=== PATIENT | female | born 1990 | race Caucasian/White ===

== ENCOUNTER 2017-04-13 19:25 | Emergency (ER) | payer SELFPAY ==
[2017-04-13 20:13] LABS: #Lymphocytes 2.6 thou/uL (1.20-3.40); #Monocytes 1.2 thou/uL (0.11-0.59); #Neutrophils 11.4 thou/uL (1.40-6.50); %Basophils 0.3 % (0.0-1.0); %Eosinophils 0.2 % (0.0-10.0); Hematocrit 37.1 % (36.0-47.0); Mean Platelet Volume 6.8 fL (7.4-10.4); Red Blood Cell (RBC) Count 3.95 mill/uL (4.20-5.40); White Blood Cell (WBC) Count 15.4 thou/uL (4.8-10.8)
[2017-04-13 20:23] LABS: Prothrombin Time 15.2 SEC (12.0-14.7)
[2017-04-13 20:32] LABS: Anion Gap 13 mmol/L (10-20); BUN (Urea Nitrogen) 9 mg/dL (7.0-18.7); Calc. Creatinine Clearance 0 mL/min (70-130); Calcium 9.6 mg/dL (7.8-10.44); Carbon Dioxide 26 mmol/L (22-29); Chloride 100 mmol/L (98-107); Estimated GFR-MDRD 87
[2017-04-13 20:38] LABS: Troponin I Less than 0.010 ng/mL (< 0.028)
--- NOTE | 2017-04-13 20:58 | RAD ---
TWO VIEW CHEST: Indication: Cough. Comparison: None. FINDINGS: There is no consolidation or effusion. No pneumothorax. Cardiac silhouette is normal in size. Osseous structures are intact. IMPRESSION: No focal consolidation. POS: [facility]
[2017-04-13] MEDS ORDERED: Acetaminophen 500 MG TAB ONE (21:17)
--- NOTE | 2017-04-13 21:17 | CT ---
CT HEAD NONCONTRAST: Indication: Cough, shortness of breath with congestion and migraine headache. FINDINGS: There is motion artifact which does limit assessment. However, there is no evidence for acute intracr anial hemorrhage or mass effect or ventriculomegaly. No midline shift. Extensive paranasal sinus opac ification is present. IMPRESSION: 1. Limited exam without acute intracranial abnormality identified. 2. Extensive opacification of the paranasal sinuses which may correlate to component of patient's hea dache. Recommend clinical correlation in this regard. POS: [facility]
[2017-04-13 22:05] LABS: Bilirubin Negative (Negative); Blood, Urine Negative (Negative); Glucose, Urine (Dipstick) Negative (Negative); Ketone, Urine Negative (Negative); Nitrite Negative (Negative); Protein, Urine (Dipstick) Negative (Neg-Trace)
[2017-04-13 22:07] LABS: Bacteria/HPF 1+ HPF (None Seen); Hyaline Casts/LPF 0-3 HYALINE CAST LPF (0-3 Hyaline)
[2017-04-13 22:21] LABS: RBC/HPF 0-3 HPF (0-3)
== END 2017-04-13 22:01 | disposition home or self-care (01) ==
LOC: ERS 19:25
DX: J01.90 Acute sinusitis, unspecified (principal); F17.210 Nicotine dependence, cigarettes, uncomplicated
CPT/HCPCS: 36415; 70450; 71020; 80048; 81003; 81015; 82553; 84484; 85025; 85379; 85610; 96360

== ENCOUNTER 2018-06-23 12:24 | Emergency (ER) | payer SELFPAY ==
[2018-06-23] MEDS ORDERED: Dexamethasone 10 MG/ML VIAL ONE (13:51)
== END 2018-06-23 14:00 | disposition home or self-care (01) ==
LOC: ERS 12:24
DX: J02.9 Acute pharyngitis, unspecified (principal); F17.210 Nicotine dependence, cigarettes, uncomplicated
CPT/HCPCS: 87081; 87430; 99283; J1100

== ENCOUNTER 2018-11-01 18:11 | Emergency (ER) | payer SELFPAY ==
--- NOTE | 2018-11-01 18:45 | RAD ---
PA AND LATERAL CHEST: 11/01/18 HISTORY: Productive cough. COMPARISON: 04/13/17 study. Heart size and mediastinum are within normal limits. The lungs are clear of infiltrates. No signific ant bony findings. IMPRESSION: No active intrathoracic disease. POS: [facility]
== END 2018-11-01 19:23 | disposition home or self-care (01) ==
LOC: ERS 18:11
DX: J20.9 Acute bronchitis, unspecified (principal); F17.210 Nicotine dependence, cigarettes, uncomplicated
CPT/HCPCS: 71046

== ENCOUNTER 2019-04-08 17:57 | Emergency (ER) | payer SELFPAY ==
[2019-04-08] MEDS ORDERED: Ibuprofen 200 MG TAB ONE (19:14)
== END 2019-04-08 19:35 | disposition home or self-care (01) ==
LOC: ERS 17:57
DX: J10.1 Influenza due to other identified influenza virus with other respiratory manifestations (principal); F17.210 Nicotine dependence, cigarettes, uncomplicated
CPT/HCPCS: 87804; 99283

== ENCOUNTER 2019-04-12 15:03 | Emergency (ER) | payer SELFPAY | END 2019-04-12 17:00 | disposition home or self-care (01) | LOC: ERS 15:03 | DX: J11.1 Influenza due to unidentified influenza virus with other respiratory manifestations (principal); F17.210 Nicotine dependence, cigarettes, uncomplicated | CPT/HCPCS: 87804; 99283 ==

== ENCOUNTER 2019-11-10 21:22 | Emergency (ER) | payer SELFPAY ==
[2019-11-10] MEDS ORDERED: Morphine 2 MG/ML SYRINGE ONE (22:26)
[2019-11-10] MEDS ORDERED: Bupivacaine 0.5% 10 ML VIAL ONE (22:36)
== END 2019-11-10 23:26 | disposition home or self-care (01) ==
LOC: ERS 21:22
DX: K03.81 Cracked tooth (principal); K02.9 Dental caries, unspecified; F17.210 Nicotine dependence, cigarettes, uncomplicated
CPT/HCPCS: 64400; 96372; J2270; J3490

== ENCOUNTER 2020-04-25 19:51 | Emergency (ER) | payer SELFPAY ==
[~2020-04-25 19:51] MED LIST: Iopamidol-370 76% 500 ML 1 ML ONE
[2020-04-25] MEDS ORDERED: Morphine 4 MG/ML VIAL ONE (20:16)
[2020-04-25] MEDS ORDERED: Ondansetron PF 4 MG/2 ML Vial ONE (20:17)
--- NOTE | 2020-04-25 20:35 | RAD ---
Chest one view HISTORY: Chest injury. COMPARISON: 04/16/2019. FINDINGS: Cardiac silhouette and pulmonary vasculature are unremarkable. Mediastinum is midline. Lungs remain hyperinflated. Lingular infiltrate has resolved. No lobar consolidation or evidence of pneumothorax. IMPRESSION : No abnormalities are demonstrated.
[2020-04-25 20:36] LABS: #Basophils 0.1 thou/uL (0.0-0.2); #Eosinphils 0.2 thou/uL (0.0-0.7); #Lymphocytes 3.1 thou/uL (1.20-3.40); #Monocytes 0.9 thou/uL (0.11-0.59); %Basophils 0.9 % (0.0-1.0); %Eosinophils 1.8 % (0.0-10.0); %Lymphocytes 25.3 % (21.0-51.0); %Monocytes 7.5 % (0.0-10.0); %Neutrophils 64.6 % (42.0-75.0); Hemoglobin 14.2 g/dL (12.0-16.0); Mean Corpuscular HGB CONC 35.3 g/dL (32.0-36.0); Mean Corpuscular Hemoglobin 33.1 pg (27.0-31.0); Mean Corpuscular Volume 93.8 fL (78.0-98.0); Mean Platelet Volume 7.6 fL (7.4-10.4); Platelet Count 253 thou/uL (130-400); White Blood Cell (WBC) Count 12.4 thou/uL (4.8-10.8)
[2020-04-25 20:52] LABS: ALT (SGPT) 16 U/L (8-55); AST (SGOT) 21 U/L (5-34); Albumin 4.2 g/dL (3.5-5.0); Alkaline Phosphatase 61 U/L (40-110); Anion Gap 12 mmol/L (10-20); BUN (Urea Nitrogen) 16 mg/dL (7.0-18.7); Bilirubin, Total 0.4 mg/dL (0.2-1.2); Calc. Creatinine Clearance 0 mL/min (70-130); Calcium 8.7 mg/dL (7.8-10.44); Carbon Dioxide 25 mmol/L (22-29); Chloride 104 mmol/L (98-107); Glucose 85 mg/dL (70-105); Lipase 17 U/L (8-78); Potassium 4.1 mmol/L (3.5-5.1); Protein, Total 7.2 g/dL (6.0-8.3); Sodium 137 mmol/L (136-145)
[2020-04-25 20:59] LABS: BHCG - Serum Negative (NEGATIVE); Pregs Control Background? CLEAR/WHITE (CLR/WHITE); Pregs Control Bar Appear? YES (CONTROL BAR)
--- NOTE | 2020-04-25 21:38 | CT ---
CT chest with IV contrast CT abdomen and pelvis with IV contrast CT thoracic spine noncontrast CT lumbar spine noncontrast HISTORY: Chest injury. Abdomen injury. Back injury. FINDINGS: Lungs are well-inflated. No mediastinal hematoma. Small amount of residual thymus. The liver, spleen, kidneys, adrenal glands, and pancreas have a normal CT appearance. No enlarged lym ph nodes or free fluid. Urinary bladder is unremarkable. Collapsed enhancing follicle of the right ovary. No evidence of bowel obstruction or inflammation. Vertebral body heights and alignment of the thoracolumbar spine are maintained. No rib fracture is ev ident. IMPRESSION : No abnormalities are demonstrated.
[2020-04-25 22:25] LABS: Bacteria/HPF None Seen HPF (None Seen); Bilirubin Negative (Negative); Blood, Urine Negative (Negative); Clarity Turbid (Clear); Glucose, Urine (Dipstick) Normal (Negative); Ketone, Urine Negative (Negative); Leukocyte 75 Leu/uL (Negative); Nitrite Negative (Negative); Protein, Urine (Dipstick) Negative (Neg-Trace); RBC/HPF 0-3 HPF (0-3); Specific Gravity, Urine 1.048 (1.002-1.036); Squamous Epithelial 21-50 HPF (0-3); Urobilinogen Normal mg/dL (Less than 2); WBC/HPF 0-3 HPF (0-3)
== END 2020-04-25 22:01 | disposition home or self-care (01) ==
LOC: ERS 19:51
DX: S29.9XXA Unspecified injury of thorax, initial encounter (principal); S39.91XA Unspecified injury of abdomen, initial encounter; I95.9 Hypotension, unspecified; R10.813 Right lower quadrant abdominal tenderness; M54.9 Dorsalgia, unspecified; R42 Dizziness and giddiness; F17.210 Nicotine dependence, cigarettes, uncomplicated; W21.02XA Struck by soccer ball, initial encounter; Y93.66 Activity, soccer
CPT/HCPCS: 71045; 71260; 74177; 80053; 81003; 81015; 83690; 84484; 84703; 85025; 93005; 96374; 96375; J2270; J2405; Q9967

== ENCOUNTER 2023-01-07 19:47 | Emergency (ER) | payer OTHER, SELFPAY ==
[~2023-01-07 19:47] MED LIST changes: -Iopamidol-370 76% 500 ML 1 ML ONE; +Iopamidol-370 76% 500 ML MDV (1 ML CHARGE) ONE
[2023-01-07 20:41] LABS: #Eosinphils 0.2 thou/uL (0.0-0.7); #Neutrophils 5.4 thou/uL (1.40-6.50); %Basophils 0.3 % (0.0-1.0); %Eosinophils 1.9 % (0.0-10.0); %Lymphocytes 35.3 % (21.0-51.0); %Neutrophils 52.3 % (42.0-75.0); Hematocrit 39.1 % (36.0-47.0); Hemoglobin 14.1 g/dL (12.0-16.0); Mean Corpuscular HGB CONC 36.1 g/dL (32.0-36.0); Mean Corpuscular Hemoglobin 32.8 pg (27.0-31.0); Mean Corpuscular Volume 90.9 fl (78.0-98.0); Mean Platelet Volume 9.8 fL (7.4-10.4); Platelet Count 278 10x3/uL (130-400); RBC Distribution Width 11.9 % (11.5-14.5); White Blood Cell (WBC) Count 10.4 10x3/uL (4.8-10.8)
[2023-01-07 20:52] LABS: BHCG - Serum Negative (NEGATIVE); Pregs Control Background? CLEAR/WHITE (CLR/WHITE); Pregs Control Bar Appear? YES (CONTROL BAR)
[2023-01-07] MEDS ORDERED: Morphine 4 MG/ML VIAL ONE (20:54)
[2023-01-07] MEDS ORDERED: Boostrix 0.5 ML (Tdap) VIAL (>/=7 yrs of age) ONE (20:54)
[2023-01-07 21:07] LABS: ALT (SGPT) 14 U/L (8-55); AST (SGOT) 20 U/L (5-34); Albumin 4.7 g/dL (3.5-5.0); Alkaline Phosphatase 58 U/L (40-110); Anion Gap 12 mmol/L (10-20); BUN (Urea Nitrogen) 9 mg/dL (7.0-18.7); Bilirubin, Total 0.6 mg/dL (0.2-1.2); Calc. Creatinine Clearance 0 mL/min (70-130); Calcium 10.3 mg/dL (7.8-10.44); Carbon Dioxide 24 mmol/L (22-29); Chloride 105 mmol/L (98-107); Estimated GFR 80; Globulin 3.2 g/dL (2.4-3.5); Glucose 92 mg/dL (70-105); Potassium 3.4 mmol/L (3.5-5.1); Protein, Total 7.9 g/dL (6.0-8.3); Sodium 138 mmol/L (136-145)
== END 2023-01-07 22:59 | disposition home or self-care (01) ==
LOC: ERS 19:47
DX: M54.9 Dorsalgia, unspecified (principal); M54.2 Cervicalgia; M25.561 Pain in right knee; F17.210 Nicotine dependence, cigarettes, uncomplicated; Y04.8XXA Assault by other bodily force, initial encounter
CPT/HCPCS: 70450; 70498; 71045; 80053; 84703; 85025; 90471; 90715; 96374; J2270; Q9967

== ENCOUNTER 2023-01-23 10:09 | Emergency (ER) | payer OTHER ==
[2023-01-23] MEDS ORDERED: Ketorolac Tromethamine 30 MG/ML VIAL ONE (10:46)
[2023-01-23] MEDS ORDERED: Lidocaine 4% Patch TD SCH (11:00)
[2023-01-23] MEDS ORDERED: Transdermal Patch Removal TOP SCH (23:00)
== END 2023-01-23 12:12 | disposition home or self-care (01) ==
LOC: ERS 10:09
DX: S16.1XXA Strain of muscle, fascia and tendon at neck level, initial encounter (principal); M25.561 Pain in right knee; M54.6 Pain in thoracic spine; F17.210 Nicotine dependence, cigarettes, uncomplicated; Y08.89XA Assault by other specified means, initial encounter; Z79.899 Other long term (current) drug therapy
CPT/HCPCS: 96372; J1885

== ENCOUNTER 2023-05-05 13:19 | Emergency (ER) | payer OTHER | END 2023-05-05 14:49 | disposition home or self-care (01) | LOC: ERS 13:19 | DX: R50.9 Fever, unspecified (principal); R51.9 Headache, unspecified; F17.210 Nicotine dependence, cigarettes, uncomplicated; Z20.828 Contact with and (suspected) exposure to other viral communicable diseases | CPT/HCPCS: 99283 ==

== ENCOUNTER 2024-05-03 01:59 | Emergency (ER) | payer OTHER ==
[2024-05-03 02:26] LABS: #Basophils 0.05 10x3/uL (0.0-0.2); %Basophils 0.6 % (0.0-1.0); %Eosinophils 1.7 % (0.0-10.0); %Lymphocytes 8.6 % (21.0-51.0); %Monocytes 7.4 % (0.0-10.0); %Neutrophils 81.4 % (42.0-75.0); Hematocrit 39.4 % (36.0-47.0); Hemoglobin 14.3 g/dL (12.0-16.0); Mean Corpuscular HGB CONC 36.3 g/dL (32.0-36.0); Mean Corpuscular Hemoglobin 33.6 pg (27.0-31.0); Mean Corpuscular Volume 92.5 fL (78.0-98.0); Mean Platelet Volume 9.5 fL (7.4-10.4); Platelet Count 228 10x3/uL (130-400); RBC Distribution Width 11.9 % (11.5-14.5); Red Blood Cell (RBC) Count 4.26 mill/uL (4.20-5.40)
[2024-05-03 02:38] LABS: BHCG - Serum Negative (NEGATIVE)
[2024-05-03 02:39] LABS: ALT (SGPT) 15 U/L (8-55); AST (SGOT) 17 U/L (5-34); Alkaline Phosphatase 60 U/L (40-110); Anion Gap 16 mmol/L (10-20); Bilirubin, Total 0.2 mg/dL (0.2-1.2); Calc. Creatinine Clearance 0 mL/min (70-130); Calcium 8.8 mg/dL (7.8-10.44); Carbon Dioxide 17 mmol/L (22-29); Chloride 109 mmol/L (98-107); Estimated GFR 101; Glucose 91 mg/dL (70-105); Potassium 3.7 mmol/L (3.5-5.1); Pregs Control Background? CLEAR/WHITE (CLR/WHITE); Pregs Control Bar Appear? YES (CONTROL BAR); Sodium 138 mmol/L (136-145)
[2024-05-03] MEDS ORDERED: Ketorolac Tromethamine 30 MG (1 mL) VIAL ONE (02:39)
[2024-05-03 02:45] LABS: Troponin I Less than 0.010 ng/mL (< 0.028)
[2024-05-03] MEDS ORDERED: Droperidol 5 MG/2 ML VIAL ONE (03:01)
[2024-05-03 03:06] LABS: BUN (Urea Nitrogen) 8 mg/dL (7.0-18.7)
== END 2024-05-03 04:25 | disposition home or self-care (01) ==
LOC: ERS 01:59
DX: J11.1 Influenza due to unidentified influenza virus with other respiratory manifestations (principal); F17.210 Nicotine dependence, cigarettes, uncomplicated
CPT/HCPCS: 71045; 80053; 83605; 84484; 84703; 85025; 87428; 93005; 96374; 96375; J1790; J1885

== ENCOUNTER 2024-05-19 14:50 | Emergency (ER) | payer OTHER ==
[2024-05-19 15:13] LABS: #Basophils 0.04 10x3/uL (0.0-0.2); %Basophils 0.2 % (0.0-1.0); %Eosinophils 0.3 % (0.0-10.0); %Lymphocytes 12.5 % (21.0-51.0); %Monocytes 5.3 % (0.0-10.0); %Neutrophils 81.3 % (42.0-75.0); Hematocrit 41.9 % (36.0-47.0); Hemoglobin 14.5 g/dL (12.0-16.0); Mean Corpuscular HGB CONC 34.6 g/dL (32.0-36.0); Mean Corpuscular Hemoglobin 32.6 pg (27.0-31.0); Mean Corpuscular Volume 94.2 fL (78.0-98.0); Mean Platelet Volume 9.3 fL (7.4-10.4); Platelet Count 305 10x3/uL (130-400); RBC Distribution Width 12.1 % (11.5-14.5); Red Blood Cell (RBC) Count 4.45 mill/uL (4.20-5.40)
[2024-05-19 15:27] LABS: Prothrombin Time 13.2 sec (12.0-14.7)
[2024-05-19 15:28] LABS: PTT 32.7 sec (22.9-36.1)
[2024-05-19 15:29] LABS: ALT (SGPT) 14 U/L (8-55); AST (SGOT) 15 U/L (5-34); Albumin 3.9 g/dL (3.5-5.0); Alkaline Phosphatase 74 U/L (40-110); Anion Gap 11 mmol/L (10-20); BUN (Urea Nitrogen) 6 mg/dL (7.0-18.7); Bilirubin, Total 0.5 mg/dL (0.2-1.2); Calc. Creatinine Clearance 0 mL/min (70-130); Calcium 9.4 mg/dL (7.8-10.44); Carbon Dioxide 25 mmol/L (22-29); Chloride 102 mmol/L (98-107); Estimated GFR 101; Globulin 4.3 g/dL (2.4-3.5); Glucose 143 mg/dL (70-105); Potassium 3.5 mmol/L (3.5-5.1); Protein, Total 8.2 g/dL (6.0-8.3); Sodium 134 mmol/L (136-145)
[2024-05-19 15:32] LABS: Troponin I Less than 0.010 ng/mL (< 0.028)
[2024-05-19] MEDS ORDERED: Morphine 4 MG/ML VIAL ONE (15:47)
[2024-05-19] MEDS ORDERED: Albuterol 2.5 MG (3 mL) NEB ONE (15:48)
[2024-05-19] MEDS ORDERED: Ketorolac Tromethamine 30 MG (1 mL) VIAL ONE (15:48)
[2024-05-19] MEDS ORDERED: Ipratropium/Albuterol 3 ML NEB ONE (15:48)
[2024-05-19] MEDS ORDERED: Azithromycin 500 MG VIAL ONE (15:48)
[2024-05-19] MEDS ORDERED: Dexamethasone 10 MG/ML VIAL ONE (15:48)
== END 2024-05-19 18:25 | disposition home or self-care (01) ==
LOC: ERS 14:50
DX: J18.9 Pneumonia, unspecified organism (principal); F17.210 Nicotine dependence, cigarettes, uncomplicated
CPT/HCPCS: 71045; 80053; 83605; 84484; 85025; 85610; 85730; 87040; 93005; 94760; 96365; 96366; 96375; J0456; J1100; J1885; J2272; J7611; J7620